=== PATIENT | female | born 1960 | race Caucasian/White ===

== ENCOUNTER → 2020-02-25 12:36 | Outpatient (CLI) | payer OTHER, SELFPAY ==
--- NOTE | ~2020-02-25 | XR_ITS ---
EXAMINATION: XR lumbar spine 2-3V DATE: 02/25/2020 13:00 INDICATION: Low back pain. TECHNIQUE: 3 views of lumbar spine were obtained. COMPARISON: None. FINDINGS: There is 19 degrees levoscoliosis of lumbar spine. Vertebral body heights are normal. There is moderately decreased disc height at L1-L2, severely decreased disc height at L2-L3, mildly decrea sed disc height at L3-L4 and L4-L5, and severely decreased disc height at L5-S1. There are endplate o steophytes at all levels. There is multilevel severe facet joint osteoarthritis. IMPRESSION: 1. Severe lumbar spondylosis. 2. Lumbar levoscoliosis. Reviewed, dictated and finalized at location A.
== END ==
PROVIDERS: PCP Internal Medicine; Visit Provider Internal Medicine
DX: M54.5 Low back pain (principal); M47.896 Other spondylosis, lumbar region
CPT/HCPCS: 72100